=== PATIENT | male | born 1935 | race Caucasian/White ===

== ENCOUNTER 2023-03-30 10:18 | Outpatient (CLI) | payer OTHER ==
[~2023-03-30 10:18] MED LIST: ASA-EC81 MG PO; COZAAR25 MG; COZAAR50 MG PO; INTEGRA PLUS C1 EACH PO; INTESTINEX680 MG PO; LEVAQUIN750 MG PO; LIPITOR20 MG PO; SYNTHROID100 MCG PO; TAMS0.4C PO; ZANTAC150 MG PO
== END 2023-03-30 14:33 | disposition home or self-care (01) ==
LOC: TOM 10:18
PROVIDERS: ATTEND Colon & Rectal Surgery
DX: C20 Malignant neoplasm of rectum (principal); Z93.2 Ileostomy status